=== PATIENT | male | born 1940 | race Caucasian/White ===

== ENCOUNTER 2016-06-11 22:15 | Inpatient (IN) | payer OTHER, MEDICARE ==
[~2016-06-11] VITALS: Ht 160 cm; Wt 84.4 kg
[~2016-06-11 22:15] MED LIST: ARICEPT10 MG PO; ARTANE2 MG PO; ASPIR-LOW81 MG PO; AZILECT1 MG PO; CARBIDOPA-LEVO1 EA16 PO; COLACE100 MG PO; CRESTOR20 MG PO; CYANOCOBALAM1000 MCG PO; DONEPEZIL HCL10 MG PO; DULCOLAX10 MG PR; ERGOCALCIF50000 UNIT PO; FLONASE ALLERG9.9 ML BOTH NARES; FUROSEMIDE40 MG PO; KLOR-CON M2020 MEQ PO; LITE COAT ASPI325 M1 PO; LOVENOX40 MG/0.4 SC; MIRAPEX0.5 MG PO; OMEPRAZOLE20 MG PO; PRAMIPEXOLE D0.25 MG PO; PRAMIPEXOLE DI0.5 MG PO; PRAMIPEXOLE DIHY1 MG PO; SENOKOT S,PE1 TABLET PO; SEROQUEL12.5 MG PO; TOPIRAMATE25 MG PO; TYLENOL REGULA325 MG PO; ZOFRAN ODT4 MG PO
[2016-06-11 23:17] LABS: EOSINOPHIL (%) 1.2 % (0-5); EOSINOPHIL COUNT 0.1 K/uL (0-0.3); IMMATURE GRANULOCYTE (%) 0.1 % (0.0-0.7); IMMATURE GRANULOCYTE COUNT 0.1 K/uL; LYMPHOCYTE COUNT 1.6 K/uL (1.0-2.8); MONOCYTE (%) 11.9 % (3-12); MONOCYTE COUNT 0.8 K/uL (0-0.8); NEUTROPHIL (%) 62.6 % (45-76); NEUTROPHIL COUNT 4.3 K/uL (1.8-6.4)
[2016-06-11 23:25] LABS: CHLORIDE 87 mEq/L (99-109); SODIUM 134 mEq/L (136-147)
[2016-06-11 23:27] LABS: GLUCOSE 144 mg/dL (70-99)
[2016-06-11 23:28] LABS: ANION GAP 17 MEQ/L (2-14)
[2016-06-11 23:30] LABS: SERUM ETHYL ALCOHOL < 10 mg/dL
[2016-06-11 23:31] LABS: GFR ESTIMATE (CALCULATED) 52 mL/min/
[2016-06-11 23:32] LABS: UREA NITROGEN (BUN) 28 mg/dL (9-23)
[2016-06-11 23:34] LABS: LIPASE 35 U/L (1.0-51.0)
[2016-06-11 23:37] LABS: TROP-I INTERPRETATION NEGATIVE; TROPONIN-I 0.02 ng/mL (0.0-0.30)
[2016-06-11 23:40] LABS: POTASSIUM 2.1 mEq/L (3.7-5.4)
[2016-06-11 23:47] LABS: HEMATOCRIT 42.1 % (38.0-50.0); MCH 33.1 PG (29.0-34.0); MCHC 37.3 G/DL (30.0-36.0); MCV 88.6 FL (86-99); MEAN PLAT.VOLUME 10.8 uM^3 (9.0-12.4); PLATELET COUNT 286 K/uL (156-360); RBC DIS.WIDTH-CV 12.4 % (11.8-14.6); RBC DIS.WIDTH-SD 39.1 % (39-53); RED BLOOD COUNT 4.75 M/uL (4.00-5.50); WHITE BLOOD COUNT 6.9 K/uL (4.1-10.2)
[2016-06-12 00:24] LABS: ADD MIUA? YES; BILIRUBIN NEGATIVE; BLOOD NEGATIVE; COLOR DK YELLOW ((YELLOW)); GLUCOSE (STRIP) NEGATIVE; KETONES TRACE; LEUKOCYTES SMALL; NITRITE NEGATIVE; PROTEIN (STRIP) NEGATIVE; SPECIFIC GRAVITY 1.016 (1.000-1.030); UROBILINOGEN 0.2 MG/DL (0.2-1.0)
[2016-06-12 00:45] LABS: BACTERIA 1+; CASTS PRESENT /LPF; EPITHELIAL CELLS RARE; MUCUS NONE SEEN; RED BLOOD CELLS 0-5 /HPF (0-5); UCUL ADDED? NO; WHITE BLOOD CELLS 0-5 /HPF (0-5)
[2016-06-12 00:46] LABS: CRYSTALS NONE SEEN; HYALINE CASTS 0-5 /LPF
[2016-06-12 00:47] LABS: AMPHETAMINE NEGATIVE (500 ng/mL); BARBITURATES NEGATIVE (200 ng/mL); BENZODIAZEPINES NEGATIVE (150 ng/mL); COCAINE NEGATIVE (150 ng/mL); INTERNAL CONTROLS VALID? YES; METHADONE NEGATIVE (200 ng/mL); METHAMPHETAMINE NEGATIVE (500 ng/mL); OPIATES (MORPHINE) NEGATIVE (100 ng/mL); OXYCODONE NEGATIVE (100 ng/mL); PHENCYCLIDINE NEGATIVE (25 ng/mL); PROPOXYPHENE NEGATIVE (300 ng/mL); THC CANNABINOIDS NEGATIVE (50 ng/mL); TRICYCLIC ANTIDEPRESSANTS PRESUMPTIVE POSITIVE (300 ng/mL)
[2016-06-12] MEDS ORDERED: MIRALAX17 GM PO (01:02)
[2016-06-12] MEDS ORDERED: LIPITOR40 MG PO (01:02)
[2016-06-12] MEDS ORDERED: CYANOCOBALAM1000 MCG PO (01:03)
[2016-06-12] MEDS ORDERED: BUMEX0.5 MG PO (01:04)
[2016-06-12] MEDS ORDERED: MIRAPEX1.5 MG PO (01:05)
[2016-06-12] MEDS ORDERED: CLARITIN,ALAVAR10 MG PO (01:06)
[2016-06-12] MEDS ORDERED: DULCOLAX5 MG PO (01:07)
[2016-06-12 01:45] VITALS: BP 111/62
[2016-06-12 03:24] VITALS: BP 134/60
[2016-06-12 08:21] VITALS: BP 141/72
[2016-06-12 11:44] LABS: ANION GAP 10 MEQ/L (2-14); CHLORIDE 89 MEQ/L (99-109); SAMPLE HEMOLYSIS CHECK 0; SAMPLE ICTERIC CHECK 0; SAMPLE LIPEMIA CHECK 0; SODIUM 135 MEQ/L (136-147)
[2016-06-12 11:47] LABS: POTASSIUM 3.3 MEQ/L (3.7-5.4)
[2016-06-12 11:50] LABS: GFR ESTIMATE (CALCULATED) > 59 mL/min/; GLUCOSE 112 mg/dL (70-99); UREA NITROGEN (BUN) 20 mg/dL (9-23)
[2016-06-12 16:30] VITALS: BP 135/76
[2016-06-12 19:42] VITALS: BP 121/76
[2016-06-12 23:28] VITALS: BP 123/64
[2016-06-13 04:11] VITALS: BP 98/54
[2016-06-13 04:50] LABS: EOSINOPHIL (%) 1.7 % (0-5); EOSINOPHIL COUNT 0.1 K/uL (0-0.3); HEMATOCRIT 40.2 % (38.0-50.0); IMMATURE GRANULOCYTE (%) 0.3 % (0.0-0.7); IMMATURE GRANULOCYTE COUNT 0.2 K/uL; LYMPHOCYTE COUNT 1.8 K/uL (1.0-2.8); MCH 32.9 PG (29.0-34.0); MCHC 35.6 G/DL (30.0-36.0); MEAN PLAT.VOLUME 10.6 uM^3 (9.0-12.4); MONOCYTE COUNT 0.7 K/uL (0-0.8); NEUTROPHIL (%) 61.9 % (45-76); NEUTROPHIL COUNT 4.4 K/uL (1.8-6.4); PLATELET COUNT 264 K/uL (156-360); RBC DIS.WIDTH-CV 12.6 % (11.8-14.6); RBC DIS.WIDTH-SD 40.9 % (39-53); RED BLOOD COUNT 4.34 M/uL (4.00-5.50); WHITE BLOOD COUNT 7.1 K/uL (4.1-10.2)
[2016-06-13 04:52] LABS: MCV 92.6 FL (86-99)
[2016-06-13 04:55] LABS: POTASSIUM 3.4 mEq/L (3.7-5.4); SODIUM 134 mEq/L (136-147)
[2016-06-13 04:57] LABS: GLUCOSE 108 mg/dL (70-99)
[2016-06-13 04:58] LABS: ANION GAP 9 MEQ/L (2-14); CHLORIDE 98 mEq/L (99-109)
[2016-06-13 05:00] LABS: GFR ESTIMATE (CALCULATED) > 59 mL/min/
[2016-06-13 05:01] LABS: UREA NITROGEN (BUN) 15 mg/dL (9-23)
[2016-06-13 07:00] VITALS: BP 112/57
[2016-06-13 11:53] VITALS: BP 128/61
[2016-06-13 15:37] VITALS: BP 137/66
[2016-06-13 20:20] VITALS: BP 113/57
[2016-06-14 00:28] VITALS: BP 128/63
[2016-06-14 05:10] VITALS: BP 115/66
[2016-06-14 06:31] LABS: ANION GAP 5 MEQ/L (2-14); GFR ESTIMATE (CALCULATED) > 59 mL/min/; GLUCOSE 98 mg/dL (70-99); SAMPLE HEMOLYSIS CHECK 0; SAMPLE ICTERIC CHECK 0; SAMPLE LIPEMIA CHECK 0; SODIUM 137 MEQ/L (136-147); UREA NITROGEN (BUN) 15 mg/dL (9-23)
[2016-06-14 06:37] LABS: CHLORIDE 105 MEQ/L (99-109); POTASSIUM 4.6 MEQ/L (3.7-5.4)
[2016-06-14 08:15] VITALS: BP 126/63
== END 2016-06-14 15:43 | disposition home or self-care (01) | DRG 641 ==
LOC: EME 22:15 → 3EAST 06-12 00:08 → EDOF 06-12 00:08 → 3EAST 06-12 01:25
PROVIDERS: Emergency Medicine; Family Medicine
DX: E87.6 Hypokalemia (principal); M25.552 Pain in left hip; W01.0XXA Fall on same level from slipping, tripping and stumbling without subsequent striking against object, initial encounter; Y92.121 Bathroom in nursing home as the place of occurrence of the external cause; G20 Parkinson's disease; I10 Essential (primary) hypertension; E78.5 Hyperlipidemia, unspecified; K21.9 Gastro-esophageal reflux disease without esophagitis; I25.10 Atherosclerotic heart disease of native coronary artery without angina pectoris; Z86.73 Personal history of transient ischemic attack (TIA), and cerebral infarction without residual deficits; F41.9 Anxiety disorder, unspecified; M62.81 Muscle weakness (generalized)
CPT/HCPCS: 70450; 71010; 73502; 80048; 81003; 83690; 84484; 85025; 93005; 94799; 97530 GP; 99281; 99285; G0480; J3480; J7030

== ENCOUNTER → 2016-08-02 | Outpatient (CLI) | payer OTHER, MEDICARE ==
[~2016-08-02] MED LIST changes: +BUMEX0.5 MG PO; +CLARITIN,ALAVAR10 MG PO; +DULCOLAX5 MG PO; +LIPITOR40 MG PO; +MIRALAX17 GM PO; +MIRAPEX1.5 MG PO
== END | disposition home or self-care (01) ==
DX: R13.10 Dysphagia, unspecified (principal)
CPT/HCPCS: 92611 GN; G8996 GN; G8997 GN; G8998 GN

== ENCOUNTER 2016-08-22 00:41 | Emergency (ER) | payer OTHER, MEDICARE ==
[~2016-08-22] VITALS: Ht 167.6 cm; Wt 81.7 kg
[2016-08-22 02:07] VITALS: BP 121/78
== END 2016-08-22 02:09 | disposition home or self-care (01) ==
LOC: EME 00:41
DX: Z03.89 Encounter for observation for other suspected diseases and conditions ruled out (principal); W01.198A Fall on same level from slipping, tripping and stumbling with subsequent striking against other object, initial encounter; Y92.009 Unspecified place in unspecified non-institutional (private) residence as the place of occurrence of the external cause; G20 Parkinson's disease; I25.10 Atherosclerotic heart disease of native coronary artery without angina pectoris; E78.5 Hyperlipidemia, unspecified; I10 Essential (primary) hypertension; I25.2 Old myocardial infarction; K21.9 Gastro-esophageal reflux disease without esophagitis; Z86.718 Personal history of other venous thrombosis and embolism; Z79.82 Long term (current) use of aspirin
CPT/HCPCS: 99281; 99284

== ENCOUNTER 2016-10-03 09:05 | Emergency (ER) | payer OTHER, MEDICARE ==
[~2016-10-03] VITALS: Ht 167.6 cm; Wt 89.5 kg
[2016-10-03 09:47] LABS: HEMATOCRIT 47.1 % (38.0-50.0); MCH 32.4 PG (29.0-34.0); MCHC 34.4 G/DL (30.0-36.0); MCV 94.2 FL (86-99); MEAN PLAT.VOLUME 10.6 uM^3 (9.0-12.4); PLATELET COUNT 293 K/uL (156-360); RBC DIS.WIDTH-CV 13.5 % (11.8-14.6); RBC DIS.WIDTH-SD 46.7 % (39-53); WHITE BLOOD COUNT 6.9 K/uL (4.1-10.2)
[2016-10-03 09:56] LABS: CHLORIDE 105 mEq/L (99-109); POTASSIUM 4.2 mEq/L (3.7-5.4); SODIUM 140 mEq/L (136-147)
[2016-10-03 09:58] LABS: GLUCOSE 99 mg/dL (70-99)
[2016-10-03 09:59] LABS: ANION GAP 10 MEQ/L (2-14)
[2016-10-03 10:01] LABS: SERUM ETHYL ALCOHOL < 10 mg/dL
[2016-10-03 10:02] LABS: GFR ESTIMATE (CALCULATED) > 59 mL/min/
[2016-10-03 10:03] LABS: UREA NITROGEN (BUN) 19 mg/dL (9-23)
[2016-10-03 10:09] LABS: ADD MIUA? NO; BILIRUBIN NEGATIVE; BLOOD NEGATIVE; COLOR YELLOW ((YELLOW)); GLUCOSE (STRIP) NEGATIVE; KETONES NEGATIVE; LEUKOCYTES NEGATIVE; NITRITE NEGATIVE; PROTEIN (STRIP) NEGATIVE; SPECIFIC GRAVITY 1.004 (1.000-1.030); UCUL ADDED? NO; UROBILINOGEN 0.2 MG/DL (0.2-1.0)
[2016-10-03 10:18] LABS: AMPHETAMINE NEGATIVE (500 ng/mL); BARBITURATES NEGATIVE (200 ng/mL); BENZODIAZEPINES NEGATIVE (150 ng/mL); COCAINE NEGATIVE (150 ng/mL); METHADONE NEGATIVE (200 ng/mL); METHAMPHETAMINE NEGATIVE (500 ng/mL); OPIATES (MORPHINE) NEGATIVE (100 ng/mL); OXYCODONE NEGATIVE (100 ng/mL); PHENCYCLIDINE NEGATIVE (25 ng/mL); PROPOXYPHENE NEGATIVE (300 ng/mL); THC CANNABINOIDS NEGATIVE (50 ng/mL); TRICYCLIC ANTIDEPRESSANTS NEGATIVE (300 ng/mL)
[2016-10-03 10:19] LABS: INTERNAL CONTROLS VALID? YES
[2016-10-03 14:09] VITALS: BP 127/71
== END 2016-10-03 14:16 | disposition home or self-care (01) ==
LOC: EME 09:05
PROVIDERS: Emergency Medicine
DX: F32.9 Major depressive disorder, single episode, unspecified (principal); G20 Parkinson's disease; E78.5 Hyperlipidemia, unspecified; I10 Essential (primary) hypertension; I25.2 Old myocardial infarction; K21.9 Gastro-esophageal reflux disease without esophagitis; Z86.718 Personal history of other venous thrombosis and embolism
CPT/HCPCS: 80048; 81003; 85027; 87040; 87086; 90839; 99281; 99285; G0480

== ENCOUNTER 2016-11-28 15:52 | Inpatient (IN) | payer OTHER, MEDICARE ==
[~2016-11-28] VITALS: Ht 167.6 cm; Wt 93.6 kg
[2016-11-28 16:44] LABS: HEMATOCRIT 42.9 % (38.0-50.0); MCH 32.2 PG (29.0-34.0); MCHC 34.7 G/DL (30.0-36.0); MCV 92.7 FL (86-99); MEAN PLAT.VOLUME 10.3 uM^3 (9.0-12.4); PLATELET COUNT 266 K/uL (156-360); RBC DIS.WIDTH-SD 43.9 % (39-53); RED BLOOD COUNT 4.63 M/uL (4.00-5.50); WHITE BLOOD COUNT 9.1 K/uL (4.1-10.2)
[2016-11-28 16:55] LABS: CHLORIDE 102 mEq/L (99-109); POTASSIUM 4.9 mEq/L (3.7-5.4); SODIUM 137 mEq/L (136-147)
[2016-11-28 16:57] LABS: GLUCOSE 101 mg/dL (70-99)
[2016-11-28 16:58] LABS: ANION GAP 10 MEQ/L (2-14)
[2016-11-28 16:59] LABS: TOTAL BILIRUBIN 0.8 mg/dL (0.0-1.0)
[2016-11-28 17:00] LABS: ALKALINE PHOSPHATASE 87 IU/L (3-129)
[2016-11-28 17:01] LABS: GFR ESTIMATE (CALCULATED) 57 mL/min/
[2016-11-28 17:02] LABS: DIRECT BILIRUBIN 0.3 mg/dL (0.0-0.3); UREA NITROGEN (BUN) 30 mg/dL (9-23)
[2016-11-28 17:04] LABS: LIPASE 26 U/L (1.0-51.0)
[2016-11-28 17:05] LABS: TROP-I INTERPRETATION NEGATIVE; TROPONIN-I < 0.01 ng/mL (0.0-0.30)
[2016-11-28 19:22] LABS: D-DIMER ELISA 0.59 mg/L FEU (< 0.57)
[2016-11-28] MEDS ORDERED: STALEVO 200 TA1 EACH PO (19:24)
[2016-11-28] MEDS ORDERED: PROTONIX40 MG PO (19:25)
[2016-11-28] MEDS ORDERED: BUMETANIDE1 MG PO (19:27)
[2016-11-28] MEDS ORDERED: KLOR-CON M1010 MEQ PO (19:28)
[2016-11-28] MEDS ORDERED: CELEXA10 MG PO (19:28)
[2016-11-28] MEDS ORDERED: ALDACTONE50 MG PO (19:28)
[2016-11-28] MEDS ORDERED: TUMS500 MG PO (19:29)
[2016-11-28 22:13] LABS: BASE EXCESS 1.2 mEq/L (-3 to +3); BICARBONATE 25.1 mEq/L (22-26); CARBOXY HGB 3.2 % (0-5); COMMENTS - BLOOD GASES A+C+; DEVICE RA; METHEMOGLOBIN 0.4 % (0-1.5); PCO2 37 mm Hg (35-45); PO2 58 mm Hg (80-100); SITE LR; pH 7.44 (7.35-7.45)
[2016-11-29 00:10] VITALS: BP 130/66
[2016-11-29 07:01] LABS: HEMATOCRIT 43.7 % (38.0-50.0); MCH 32.3 PG (29.0-34.0); MCHC 34.8 G/DL (30.0-36.0); MEAN PLAT.VOLUME 10.7 uM^3 (9.0-12.4); PLATELET COUNT 275 K/uL (156-360); RBC DIS.WIDTH-CV 13.2 % (11.8-14.6)
[2016-11-29 07:02] LABS: ANION GAP 7 MEQ/L (2-14); CHLORIDE 106 MEQ/L (99-109); GFR ESTIMATE (CALCULATED) > 59 mL/min/; GLUCOSE 148 mg/dL (70-99); POTASSIUM 4.7 MEQ/L (3.7-5.4); SAMPLE HEMOLYSIS CHECK 1; SAMPLE ICTERIC CHECK 0; SAMPLE LIPEMIA CHECK 0; SODIUM 138 MEQ/L (136-147); UREA NITROGEN (BUN) 24 mg/dL (9-23)
[2016-11-29 07:52] VITALS: BP 120/68
[2016-11-29 11:48] VITALS: BP 123/61
[2016-11-29 16:12] VITALS: BP 135/70
[2016-11-29 20:14] VITALS: BP 126/67
[2016-11-30 01:30] VITALS: BP 106/58
[2016-11-30 03:50] VITALS: BP 104/55
[2016-11-30 07:08] VITALS: BP 122/59
[2016-11-30 12:40] LABS: CHLAMYDIA TRACHOMATIS NEGATIVE; NEISSERIA GONORRHOEAE NEGATIVE
[2016-11-30 16:36] VITALS: BP 114/53
[2016-11-30 19:19] VITALS: BP 102/52
[2016-11-30 23:03] VITALS: BP 109/53
[2016-12-01 06:45] LABS: EOSINOPHIL (%) 0 % (0-5); HEMATOCRIT 40.9 % (38.0-50.0); IMMATURE GRANULOCYTE (%) 0.6 % (0.0-0.7); IMMATURE GRANULOCYTE COUNT 0.1 K/uL; INSTRUMENT ABS NEUTROPHIL CT 14.1 K/uL; LYMPHOCYTE COUNT 1.3 K/uL (1.0-2.8); MCH 32.9 PG (29.0-34.0); MCHC 34.5 G/DL (30.0-36.0); MCV 95.6 FL (86-99); MONOCYTE (%) 6.3 % (3-12); MONOCYTE COUNT 1.1 K/uL (0-0.8); NEUTROPHIL (%) 84.9 % (45-76); NEUTROPHIL COUNT 14.1 K/uL (1.8-6.4); PLATELET COUNT 253 K/uL (156-360); RBC DIS.WIDTH-CV 13.9 % (11.8-14.6); RBC DIS.WIDTH-SD 48.4 % (39-53); RED BLOOD COUNT 4.28 M/uL (4.00-5.50); WHITE BLOOD COUNT 16.6 K/uL (4.1-10.2)
[2016-12-01 07:01] VITALS: BP 95/51
[2016-12-01 07:08] LABS: ANION GAP 8 MEQ/L (2-14); CHLORIDE 107 MEQ/L (99-109); GFR ESTIMATE (CALCULATED) > 59 mL/min/; POTASSIUM 4.8 MEQ/L (3.7-5.4); SAMPLE HEMOLYSIS CHECK 0; SAMPLE ICTERIC CHECK 0; SAMPLE LIPEMIA CHECK 0; SODIUM 139 MEQ/L (136-147); UREA NITROGEN (BUN) 31 mg/dL (9-23)
[2016-12-01 07:10] LABS: GLUCOSE 88 mg/dL (70-99)
[2016-12-01 08:40] VITALS: BP 104/54
[2016-12-01] MEDS ORDERED: ADVAIR HFA120 INHALA IH (13:34)
[2016-12-01] MEDS ORDERED: PREDNISONE10 M1 PO (13:34)
[2016-12-01] MEDS ORDERED: PROAIR RESPICL90 MCG IH (13:35)
[2016-12-01 17:25] VITALS: BP 106/64
[2016-12-01 22:26] VITALS: BP 103/54
[2016-12-02 07:56] VITALS: BP 136/72
[2016-12-02 15:39] VITALS: BP 113/61
[2016-12-02 22:24] VITALS: BP 114/62
[2016-12-03 06:50] VITALS: BP 116/59
[2016-12-03 10:56] VITALS: BP 139/86
== END 2016-12-03 13:22 | disposition home or self-care (01) | DRG 192 ==
LOC: EME 15:52 → EDOF 21:48 → 5EAST 21:48
PROVIDERS: Emergency Medicine; Family Medicine Sports Medicine
DX: J44.1 Chronic obstructive pulmonary disease with (acute) exacerbation (principal); I10 Essential (primary) hypertension; I25.10 Atherosclerotic heart disease of native coronary artery without angina pectoris; G20 Parkinson's disease; F32.9 Major depressive disorder, single episode, unspecified; R13.10 Dysphagia, unspecified; E78.5 Hyperlipidemia, unspecified; R09.02 Hypoxemia; K21.9 Gastro-esophageal reflux disease without esophagitis; D64.9 Anemia, unspecified; K59.00 Constipation, unspecified; I11.9 Hypertensive heart disease without heart failure; Z79.82 Long term (current) use of aspirin; Z79.899 Other long term (current) drug therapy; Z86.73 Personal history of transient ischemic attack (TIA), and cerebral infarction without residual deficits
CPT/HCPCS: 36600; 71010; 71020; 71275; 80048; 80076; 81003; 82803; 83605; 83690; 84484; 85025; 85027; 85379; 87040; 87086; 87491; 87591; 93005; 93971; 94640; 94640 76; 94760; 94799; 99202; 99281; 99285; J1650; J2930; J7512

== ENCOUNTER 2016-12-25 09:50 | Inpatient (IN) | payer OTHER, MEDICARE ==
[~2016-12-25] VITALS: Ht 167.6 cm; Wt 85.5 kg
[~2016-12-25 09:50] MED LIST changes: +ADVAIR HFA120 INHALA IH; +ALDACTONE50 MG PO; +BUMETANIDE1 MG PO; +CELEXA10 MG PO; +KLOR-CON M1010 MEQ PO; +PREDNISONE10 M1 PO; +PROAIR RESPICL90 MCG IH; +PROTONIX40 MG PO; +STALEVO 200 TA1 EACH PO; +TUMS500 MG PO
[2016-12-25 11:15] LABS: EOSINOPHIL COUNT 0.2 K/uL (0-0.3); HEMATOCRIT 41.8 % (38.0-50.0); IMMATURE GRANULOCYTE (%) 0.4 % (0.0-0.7); INSTRUMENT ABS NEUTROPHIL CT 2.6 K/uL; LYMPHOCYTE COUNT 1.6 K/uL (1.0-2.8); MCH 31.8 PG (29.0-34.0); MCV 93.7 FL (86-99); MEAN PLAT.VOLUME 10.1 uM^3 (9.0-12.4); MONOCYTE (%) 14.4 % (3-12); MONOCYTE COUNT 0.7 K/uL (0-0.8); NEUTROPHIL (%) 50.2 % (45-76); NEUTROPHIL COUNT 2.6 K/uL (1.8-6.4); PLATELET COUNT 250 K/uL (156-360); RBC DIS.WIDTH-CV 13.2 % (11.8-14.6); RBC DIS.WIDTH-SD 45.1 % (39-53); RED BLOOD COUNT 4.46 M/uL (4.00-5.50); WHITE BLOOD COUNT 5.1 K/uL (4.1-10.2)
[2016-12-25 11:21] LABS: INTER. NORMALIZED RATIO 1.1; PROTHROMBIN TIME 11.7 SEC (10.2-12.9)
[2016-12-25 11:24] LABS: CHLORIDE 103 mEq/L (99-109); POTASSIUM 3.7 mEq/L (3.7-5.4); PTT 27.9 SEC (25-37); SODIUM 143 mEq/L (136-147)
[2016-12-25 11:26] LABS: GLUCOSE 100 mg/dL (70-99)
[2016-12-25 11:28] LABS: ANION GAP 14 MEQ/L (2-14); TOTAL BILIRUBIN 1.1 mg/dL (0.0-1.0)
[2016-12-25 11:30] LABS: ALKALINE PHOSPHATASE 96 IU/L (3-129); GFR ESTIMATE (CALCULATED) > 59 mL/min/
[2016-12-25 11:31] LABS: UREA NITROGEN (BUN) 17 mg/dL (9-23)
[2016-12-25 11:36] LABS: TROP-I INTERPRETATION NEGATIVE; TROPONIN-I < 0.01 ng/mL (0.0-0.30)
[2016-12-25 19:48] VITALS: BP 138/73
[2016-12-25 22:48] VITALS: BP 108/55
[2016-12-26 06:08] LABS: HEMATOCRIT 38.9 % (38.0-50.0); MCH 31.6 PG (29.0-34.0); MCHC 33.7 G/DL (30.0-36.0); MCV 93.7 FL (86-99); MEAN PLAT.VOLUME 10.6 uM^3 (9.0-12.4); PLATELET COUNT 252 K/uL (156-360); RBC DIS.WIDTH-CV 13.3 % (11.8-14.6); RBC DIS.WIDTH-SD 45.5 % (39-53); RED BLOOD COUNT 4.15 M/uL (4.00-5.50); WHITE BLOOD COUNT 8.1 K/uL (4.1-10.2)
[2016-12-26 06:45] LABS: ANION GAP 10 MEQ/L (2-14); CHLORIDE 107 MEQ/L (99-109); GFR ESTIMATE (CALCULATED) > 59 mL/min/; GLUCOSE 122 mg/dL (70-99); POTASSIUM 3.9 MEQ/L (3.7-5.4); SAMPLE HEMOLYSIS CHECK 0; SAMPLE ICTERIC CHECK 0; SAMPLE LIPEMIA CHECK 0; SODIUM 142 MEQ/L (136-147); UREA NITROGEN (BUN) 18 mg/dL (9-23)
[2016-12-26 07:20] VITALS: BP 101/51
[2016-12-26 11:10] VITALS: BP 105/56
[2016-12-26 15:35] VITALS: BP 103/54
[2016-12-26 21:00] VITALS: BP 118/59
[2016-12-27 00:31] VITALS: BP 135/65
[2016-12-27 06:00] VITALS: BP 122/59
[2016-12-27 07:26] VITALS: BP 114/57
[2016-12-27 11:17] VITALS: BP 133/66
[2016-12-27 15:42] VITALS: BP 138/61
[2016-12-27 20:50] VITALS: BP 105/63
[2016-12-28 00:03] VITALS: BP 110/62
[2016-12-28 06:00] LABS: EOSINOPHIL (%) 2.3 % (0-5); EOSINOPHIL COUNT 0.1 K/uL (0-0.3); HEMATOCRIT 39.4 % (38.0-50.0); IMMATURE GRANULOCYTE (%) 0.9 % (0.0-0.7); IMMATURE GRANULOCYTE COUNT 0.1 K/uL; INSTRUMENT ABS NEUTROPHIL CT 2.9 K/uL; LYMPHOCYTE COUNT 1.9 K/uL (1.0-2.8); MCH 32.9 PG (29.0-34.0); MCV 96.8 FL (86-99); MEAN PLAT.VOLUME 10.7 uM^3 (9.0-12.4); MONOCYTE (%) 13.2 % (3-12); MONOCYTE COUNT 0.8 K/uL (0-0.8); NEUTROPHIL (%) 49.9 % (45-76); NEUTROPHIL COUNT 2.9 K/uL (1.8-6.4); PLATELET COUNT 269 K/uL (156-360); RBC DIS.WIDTH-CV 13.8 % (11.8-14.6); RBC DIS.WIDTH-SD 48.6 % (39-53); RED BLOOD COUNT 4.07 M/uL (4.00-5.50); WHITE BLOOD COUNT 5.8 K/uL (4.1-10.2)
[2016-12-28 06:34] LABS: ANION GAP 5 MEQ/L (2-14); CHLORIDE 107 MEQ/L (99-109); GFR ESTIMATE (CALCULATED) > 59 mL/min/; GLUCOSE 81 mg/dL (70-99); POTASSIUM 4.3 MEQ/L (3.7-5.4); SAMPLE HEMOLYSIS CHECK 0; SAMPLE ICTERIC CHECK 0; SAMPLE LIPEMIA CHECK 0; SODIUM 142 MEQ/L (136-147); UREA NITROGEN (BUN) 16 mg/dL (9-23)
[2016-12-28 07:10] VITALS: BP 117/58
[2016-12-28 07:15] VITALS: BP 133/65
[2016-12-28 11:00] VITALS: BP 129/62
[2016-12-28] MEDS ORDERED: KEFLEX750 MG PO (17:13)
== END 2016-12-28 18:17 | disposition home or self-care (01) | DRG 191 ==
LOC: EME 09:50 → EDOF 16:10 → 5EAST 16:10 → ENRESERV 16:12 → 5EAST 19:30
PROVIDERS: Emergency Medicine; Family Medicine Sports Medicine
DX: J44.1 Chronic obstructive pulmonary disease with (acute) exacerbation (principal); L03.115 Cellulitis of right lower limb; G20 Parkinson's disease; F33.9 Major depressive disorder, recurrent, unspecified; J44.0 Chronic obstructive pulmonary disease with (acute) lower respiratory infection; J20.9 Acute bronchitis, unspecified; E78.5 Hyperlipidemia, unspecified; I10 Essential (primary) hypertension; I25.10 Atherosclerotic heart disease of native coronary artery without angina pectoris; I25.2 Old myocardial infarction; J98.11 Atelectasis; K21.9 Gastro-esophageal reflux disease without esophagitis; Z79.82 Long term (current) use of aspirin; Z79.899 Other long term (current) drug therapy; Z86.73 Personal history of transient ischemic attack (TIA), and cerebral infarction without residual deficits; M19.90 Unspecified osteoarthritis, unspecified site; R21 Rash and other nonspecific skin eruption; R41.82 Altered mental status, unspecified; R09.02 Hypoxemia; Z86.718 Personal history of other venous thrombosis and embolism; T17.990A Other foreign object in respiratory tract, part unspecified in causing asphyxiation, initial encounter; X58.XXXA Exposure to other specified factors, initial encounter; Y92.019 Unspecified place in single-family (private) house as the place of occurrence of the external cause
CPT/HCPCS: 71010; 71275; 80048; 80053; 83880; 84484; 85025; 85027; 85379; 85610; 85730; 93005; 93971; 94640; 94640 76; 94799; 99202; 99281; 99285; J0696; J1650; J2930; J7050

== ENCOUNTER 2017-01-04 11:20 | Inpatient (IN) | payer OTHER, MEDICARE ==
[~2017-01-04] VITALS: Ht 167.6 cm; Wt 83.7 kg
[~2017-01-04 11:20] MED LIST changes: +KEFLEX750 MG PO
[2017-01-04 13:01] LABS: HEMATOCRIT 40.7 % (38.0-50.0); MCH 32.1 PG (29.0-34.0); MCHC 34.6 G/DL (30.0-36.0); MEAN PLAT.VOLUME 10.2 uM^3 (9.0-12.4); PLATELET COUNT 282 K/uL (156-360); RBC DIS.WIDTH-CV 13.2 % (11.8-14.6); RBC DIS.WIDTH-SD 44.8 % (39-53); RED BLOOD COUNT 4.39 M/uL (4.00-5.50); WHITE BLOOD COUNT 5.7 K/uL (4.1-10.2)
[2017-01-04 13:02] LABS: MCV 92.7 FL (86-99)
[2017-01-04 13:06] LABS: CARBON DIOXIDE (BICARBONATE) 29.9 MEQ/L (20-31)
[2017-01-04 13:09] LABS: CHLORIDE 106 mEq/L (99-109); POTASSIUM 3.8 mEq/L (3.7-5.4); SODIUM 140 mEq/L (136-147)
[2017-01-04 13:11] LABS: GLUCOSE 108 mg/dL (70-99)
[2017-01-04 13:12] LABS: ANION GAP 9 MEQ/L (2-14)
[2017-01-04 13:15] LABS: GFR ESTIMATE (CALCULATED) > 59 mL/min/
[2017-01-04 13:16] LABS: UREA NITROGEN (BUN) 16 mg/dL (9-23)
[2017-01-04 13:17] LABS: CREATINE KINASE 144 IU/L (1-294); TOTAL CK 144 IU/L (1-294)
[2017-01-04 13:22] LABS: TROP-I INTERPRETATION NEGATIVE; TROPONIN-I 0.02 ng/mL (0.0-0.30)
[2017-01-04 13:24] LABS: CK-MB 2.2 ng/mL (0.0-4.9)
[2017-01-04] MEDS ORDERED: SENOKOT,SENN1 TABLET PO (15:14)
[2017-01-04] MEDS ORDERED: DUONEB 2.5-0.5 M3 ML AEROSOL (15:19)
[2017-01-04] MEDS ORDERED: ONDANSETRON HCL4 MG PO (15:21)
[2017-01-04] MEDS ORDERED: TUMS500 MG PO (15:22)
[2017-01-04 17:45] VITALS: BP 140/71
[2017-01-04 19:08] LABS: BASE EXCESS 3.3 mEq/L (-3 to +3); BICARBONATE 26.9 mEq/L (22-26); CARBOXY HGB 2.1 % (0-5); METHEMOGLOBIN 1.3 % (0-1.5); PCO2 37 mm Hg (35-45); PO2 59 mm Hg (80-100); pH 7.47 (7.35-7.45)
[2017-01-04 19:09] LABS: COMMENTS - BLOOD GASES C+A+; FI02 21 %; O2 FLOW 0 L/MIN; SITE LR
[2017-01-05 00:30] VITALS: BP 144/58
[2017-01-05 07:11] VITALS: BP 115/67
[2017-01-05 23:25] VITALS: BP 133/69
[2017-01-06 05:50] VITALS: BP 129/65
[2017-01-06 07:18] VITALS: BP 131/72
[2017-01-06 16:09] VITALS: BP 138/75
[2017-01-06 20:13] VITALS: BP 132/63
[2017-01-06 23:25] VITALS: BP 128/62
[2017-01-07 03:29] VITALS: BP 92/59
[2017-01-07 07:24] VITALS: BP 118/58
[2017-01-07 11:30] VITALS: BP 131/78
[2017-01-07 16:33] VITALS: BP 137/76
[2017-01-07 19:58] VITALS: BP 126/60
[2017-01-07 23:42] VITALS: BP 115/55
[2017-01-08 03:26] VITALS: BP 131/62
[2017-01-08 07:36] VITALS: BP 107/55
[2017-01-08 10:52] VITALS: BP 109/60
[2017-01-08 16:07] VITALS: BP 109/57
[2017-01-08 20:21] VITALS: BP 113/57
[2017-01-09] VITALS: BP 111/60
[2017-01-09 06:05] VITALS: BP 148/70
[2017-01-09 07:53] VITALS: BP 120/58
[2017-01-09 11:30] VITALS: BP 153/69
[2017-01-09] MEDS ORDERED: OXYGEN MC (14:47)
[2017-01-09] MEDS ORDERED: MILLIPRED DP5 M1 PO (15:04)
[2017-01-09 16:40] VITALS: BP 131/65
[2017-01-10 00:15] VITALS: BP 128/67
[2017-01-10 07:04] VITALS: BP 125/59
== END 2017-01-10 16:15 | disposition home or self-care (01) | DRG 178 ==
LOC: EME 11:20 → EDOF 15:40 → CANRESERV 15:40 → 5EAST 15:40 → ENRESERV 15:40 → 5EAST 17:20
PROVIDERS: Emergency Medicine; Internal Medicine Pulmonary Disease
DX: J69.0 Pneumonitis due to inhalation of food and vomit (principal); J44.1 Chronic obstructive pulmonary disease with (acute) exacerbation; L03.115 Cellulitis of right lower limb; F33.9 Major depressive disorder, recurrent, unspecified; I12.9 Hypertensive chronic kidney disease with stage 1 through stage 4 chronic kidney disease, or unspecified chronic kidney disease; R09.02 Hypoxemia; I25.10 Atherosclerotic heart disease of native coronary artery without angina pectoris; K21.9 Gastro-esophageal reflux disease without esophagitis; G24.9 Dystonia, unspecified; G20 Parkinson's disease; D64.9 Anemia, unspecified; E78.5 Hyperlipidemia, unspecified; Z99.81 Dependence on supplemental oxygen; R47.1 Dysarthria and anarthria; N18.3 Chronic kidney disease, stage 3 (moderate); R13.10 Dysphagia, unspecified; I25.2 Old myocardial infarction; Z77.090 Contact with and (suspected) exposure to asbestos; Z79.82 Long term (current) use of aspirin; Z86.73 Personal history of transient ischemic attack (TIA), and cerebral infarction without residual deficits; Z88.0 Allergy status to penicillin; Z82.49 Family history of ischemic heart disease and other diseases of the circulatory system
CPT/HCPCS: 36600; 71020; 74230; 80048; 82550; 82553; 82803; 83605; 83880; 84484; 85027; 87040; 87070; 87205; 87449; 92526 GN; 92611 GN; 93005; 93306; 94640; 94640 76; 94799; 99202; 99281; 99285; J0456; J0696; J1650; J1940; J2060; J2930; J7050; J7512

== ENCOUNTER 2017-03-14 17:05 | Emergency (ER) | payer OTHER, MEDICARE ==
[~2017-03-14] VITALS: Ht 172.7 cm; Wt 68.6 kg
[~2017-03-14 17:05] MED LIST changes: +DUONEB 2.5-0.5 M3 ML AEROSOL; +MILLIPRED DP5 M1 PO; +ONDANSETRON HCL4 MG PO; +OXYGEN MC; +SENOKOT,SENN1 TABLET PO
[2017-03-14 18:23] LABS: HEMATOCRIT 51.5 % (38.0-50.0); MCH 31.5 PG (29.0-34.0); MCHC 35.9 G/DL (30.0-36.0); MCV 87.6 FL (86-99); MEAN PLAT.VOLUME 10.3 uM^3 (9.0-12.4); PLATELET COUNT 289 K/uL (156-360); RBC DIS.WIDTH-CV 13.2 % (11.8-14.6); RBC DIS.WIDTH-SD 42.5 % (39-53); RED BLOOD COUNT 5.88 M/uL (4.00-5.50); WHITE BLOOD COUNT 9.7 K/uL (4.1-10.2)
[2017-03-14 18:37] LABS: CHLORIDE 80 mEq/L (99-109); POTASSIUM 2.6 mEq/L (3.7-5.4); SODIUM 136 mEq/L (136-147)
[2017-03-14 18:40] LABS: GLUCOSE 140 mg/dL (70-99)
[2017-03-14 18:41] LABS: ANION GAP 21 MEQ/L (2-14); TOTAL BILIRUBIN 2.7 mg/dL (0.0-1.0)
[2017-03-14 18:43] LABS: ALKALINE PHOSPHATASE 120 IU/L (3-129); GFR ESTIMATE (CALCULATED) > 59 mL/min/
[2017-03-14 18:44] LABS: UREA NITROGEN (BUN) 20 mg/dL (9-23)
[2017-03-14 18:45] LABS: DIRECT BILIRUBIN 1.4 mg/dL (0.0-0.3)
[2017-03-14 18:47] LABS: LIPASE 25 U/L (1.0-51.0)
[2017-03-14] MEDS ORDERED: COMPAZINE25 M1 PR (20:13)
[2017-03-14] MEDS ORDERED: ZOFRAN4 MG PO (20:14)
[2017-03-14 21:37] VITALS: BP 95/65
== END 2017-03-14 21:53 | disposition home or self-care (01) ==
LOC: EME 17:05
PROVIDERS: Emergency Medicine
DX: R11.2 Nausea with vomiting, unspecified (principal); I10 Essential (primary) hypertension; E78.5 Hyperlipidemia, unspecified; G20 Parkinson's disease; J44.9 Chronic obstructive pulmonary disease, unspecified; Z79.82 Long term (current) use of aspirin; Z86.718 Personal history of other venous thrombosis and embolism
CPT/HCPCS: 74176; 80048; 80076; 81003; 83690; 85027; 99281; 99284; J2405; J7030